=== PATIENT | female | born 1955 | race Caucasian/White ===

== ENCOUNTER 2020-11-19 08:36 | Emergency (ER) | payer MEDICARE ==
[2020-11-19] MEDS ORDERED: Ketorolac 30 MG/ML SDV IVPUSH ONE (09:12)
[2020-11-19] MEDS ORDERED: Prochlorperazine 10 MG/2 ML SDV IVPUSH ONE (09:12)
[2020-11-19] MEDS ORDERED: Sodium Chloride 0.9% 1,000 ML IV SCH (09:15)
--- NOTE | 2020-11-19 09:18 | EDM.PDOC ---
ED HPI GENERAL MEDICAL PROBLEM - General Chief Complaint: Headache Stated Complaint: VOMITTING, TERRIBLE HEADACHE Time Seen by Provider: 11/19/20 09:00 Source of Information: Reports: Patient History Limitations: Reports: No Limitations - History of Present Illness INITIAL COMMENTS - FREE TEXT/NARRATIVE: 65-year-old female with a frontal headache for the past 6 days, persistent nausea and intermittent emesis. No fevers or chills, no shortness of breath. She has lost 4 pounds in the last week, feels lightheaded and dizzy and dehydrated. She does have a history of migraines in the remote past but this 1 is different than the where she is ever had. Her headache is frontal, bilateral above her eyes, and radiates into the temporal areas. She has photophobia and nausea, no neurologic deficits, aphasia or asymmetry but is dizzy. Headache was not abrupt onset. Onset: Gradual Duration: Day(s): (6 days) Location: Reports: Head (Frontal and temporal bilaterally) Associated Symptoms: Reports: Headaches, Loss of Appetite, Nausea/Vomiting, Weakness, Other (Dizziness). 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 Denies: Fever, Chills, Decreased Appetite HEENT: Reports: Other (Photophobia but no vision change or diplopia) Respiratory: Reports: No Symptoms Cardiovascular: Reports: No Symptoms GI/Abdominal: Reports: Nausea, Vomiting : Reports: No Symptoms Skin: Reports: No Symptoms Neurological: Reports: Dizziness, Headache, Weakness Psychiatric: Reports: No Symptoms - Physical Exam Exam: See Below Exam Limited By: No Limitations General Appearance: Alert, No Apparent Distress (Looks uncomfortable and ill but not distressed) Eye Exam: Bilateral Eye: Normal Inspection, PERRL Head Exam: Scalp Tenderness (Tender to palpation over the frontal and temporal scalp bilaterally). No: Sinus Tenderness Neck: Supple, Non-Tender Respiratory/Chest: Lungs Clear Cardiovascular: Regular Rate, Rhythm, Tachycardia Neuro Exam (Abbreviated): Alert, Oriented, No Motor/Sensory Deficits Extremities: No Pedal Edema Psychiatric: Normal Affect, Normal Mood Skin Exam: Warm, Dry Course - Vital Signs Last Recorded V/S: Last Vital Signs Temp 97.4 F 11/19/20 08:53 Pulse 117 H 11/19/20 08:53 Resp 20 11/19/20 08:53 BP 163/84 H 11/19/20 08:53 Pulse Ox 99 11/19/20 08:53 - Orders/Labs/Meds Meds: Medications Discontinued Medications Generic Name Dose Route Start Last Admin Trade Name Freq PRN Reason Stop Dose Admin Sodium Chloride 1,000 mls @ 1,000 mls/hr 11/19/20 09:15 11/19/20 09:26 Normal Saline IV 1,000 mls/hr ASDIRECTED SHAYLA Administration Ketorolac Tromethamine 30 mg 11/19/20 09:12 11/19/20 09:24 Toradol IVPUSH 11/19/20 09:13 30 mg ONETIME ONE Administration Methylprednisolone Sodium Succinate 62.5 mg 11/19/20 10:28 11/19/20 10:37 Solu-Medrol IVPUSH 11/19/20 10:29 62.5 mg ONETIME ONE Administration Prochlorperazine Edisylate 5 mg 11/19/20 09:12 11/19/20 09:22 Compazine IVPUSH 11/19/20 09:13 5 mg ONETIME ONE Administration - Re-Assessments/Exams Free Text/Narrative Re-Assessment/Exam: 11/19/20 09:18 An IV was started, patient will be hydrated with 1 L of normal saline and she was given 30 mg of IV Toradol and 5 mg of IV Compazine. A CT of the head without contrast will be obtained. 11/19/20 10:00 30 minutes after the medications, the patient felt much better. She has received half a liter of fluid so far, and the head CT is negative. 11/19/20 10:36 Prior to discharge, patient was given 62.5 mg of IV Solu-Medrol. She will be discharged with 15 doses of tramadol and 5 doses of sublingual Zofran to use for symptom control over the next several days. She can return if worsening. Departure - Departure Time of Disposition: 10:54 Disposition: Home, Self-Care 01 Clinical Impression: Tension-type headache, Migraine - Discharge Information Instructions: General Headache Without Cause, [id number] Referrals: Sharri Levy MD [Primary Care Provider] - Forms: ED Department Discharge Care Plan Goals: Rest, fluids, and use tramadol for as needed pain control along with Zofran for nausea. You should improve rapidly over the next several days, if not consider rechecking if not improving satisfactorily. Return sooner if worsening such as increased pain, fever, or uncontrolled symptoms despite treatment. Sepsis Event Note (ED) - Evaluation Sepsis Screening Result: No Definite Risk - Focused Exam Vital Signs: Vital Signs Temp Pulse Resp BP Pulse Ox 11/19/20 08:53 97.4 F 117 H 20 163/84 H 99
--- NOTE | 2020-11-19 09:52 | CT ---
Head wo Cont CLINICAL HISTORY: Headache COMPARISON: None TECHNIQUE: Transverse scans were obtained from the base of the skull through the vertex without IV contrast on a multislice, multidetector CT scanner. Auto dosage reduction and iterative reconstruction techniques employed. FINDINGS: No focal abnormal parenchymal densities are identified. There is no mass effect, hemorrhage, or extraaxial collection. The basal cisterns and sulci over the convexities are normal. The ventricles are normal for age. There is a 6 x 8 mm calcified or ossified focus off the left-parietal calvarium anteriorly. This is likely a small quiescent meningioma or possibly a small enostosis. IMPRESSION: No acute intracranial process Small burned-out meningioma versus enostosis of the left the high parietal calvarium
[2020-11-19] MEDS ORDERED: methylPREDNISolone Sodium Succinate 125 MG/2 ML SDV IVPUSH ONE (10:28)
== END 2020-11-19 10:54 | disposition home or self-care (01) ==
LOC: JP.ED 08:36
DX: G44.209 Tension-type headache, unspecified, not intractable (principal); G43.909 Migraine, unspecified, not intractable, without status migrainosus; Z88.8 Allergy status to other drugs, medicaments and biological substances; Z88.0 Allergy status to penicillin
CPT/HCPCS: 70450; 96374; 96375; 99284; J0780; J1885; J2930; J7030

== ENCOUNTER 2021-06-28 11:31 | Emergency (ER) | payer MEDICARE ==
[2021-06-28] MEDS ORDERED: Adenosine 6 MG/2 ML SDV ONE ×2 (11:44→11:45)
[2021-06-28] MEDS ORDERED: Diltiazem 25 MG/5 ML SDV ONE (11:55)
[2021-06-28] MEDS ORDERED: Diltiazem 25 MG/5 ML SDV IVPUSH ONE (11:57)
[2021-06-28] MEDS ORDERED: Adenosine 6 MG/2 ML SDV IVPUSH ONE ×2 (11:59)
--- NOTE | 2021-06-28 12:01 | EDM.PDOC ---
ED HPI GENERAL MEDICAL PROBLEM - General Chief Complaint: Cardiovascular Problem Stated Complaint: MEDICAL VIA [facility] Time Seen by Provider: 06/28/21 12:00 Source of Information: Reports: Patient, RN Notes Reviewed History Limitations: Reports: No Limitations - History of Present Illness INITIAL COMMENTS - FREE TEXT/NARRATIVE: 65-year-old female presents emergency department with a complaint of palpitations, she states she has had palpitations in the past this really started this morning her other complaint is explosive diarrhea that also started this morning she is not vaccinated. - Related Data Allergies Allergy/AdvReac Type Severity Reaction Status Date / Time NSAIDS (Non-Steroidal Allergy Shortness Verified 06/28/21 12:03 Anti-Inflamma of Breath Penicillins Allergy Rash Verified 06/28/21 12:03 prednisone Allergy Shortness Verified 06/28/21 12:03 of Breath Home Meds: Home Meds NK [No Known Home Meds] 11/19/20 [History] Past Medical History BUT[employer] History: Reports: Musculoskeletal History: Reports: Back Pain, Chronic - Past Surgical History HEENT Surgical History: Reports: Adenoidectomy, Tonsillectomy Female Surgical History: Reports: Lithotripsy/ESWL Other Musculoskeletal Surgeries/Procedures:: back surgery Social & Family History - Caffeine Use Caffeine Use: Reports: Soda ED ROS GENERAL - Review of Systems Review Of Systems: See Below Constitutional: Reports: Weakness, Fatigue HEENT: Reports: No Symptoms Respiratory: Reports: No Symptoms Cardiovascular: Reports: Palpitations GI/Abdominal: Reports: Diarrhea ED EXAM, GENERAL - Physical Exam Exam: See Below Free Text/Narrative:: Rectal exam in the presence of nursing staff does show bright red blood on the skin no further exam is done Exam Limited By: No Limitations General Appearance: Alert, Mild Distress Respiratory/Chest: No Respiratory Distress, Lungs Clear, Normal Breath Sounds, No Accessory Muscle Use, Chest Non-Tender Cardiovascular: Tachycardia GI/Abdominal: Soft, Non-Tender #1 Interpretation EKG Date: 06/28/21 (n) Time: 13:06 Rhythm: Other (Tachycardia) [place]: Normal P-Wave: Present QRS: Normal ST-T: Normal QT: Normal Comparison: NA - No Prior EKG Course - Vital Signs Last Recorded V/S: Last Vital Signs Temp 99.1 F 06/28/21 16:11 Pulse 97 06/28/21 16:11 Resp 16 06/28/21 16:11 BP 110/58 L 06/28/21 16:11 Pulse Ox 100 06/28/21 14:24 - Orders/Labs/Meds Orders: Active Orders 24 hr Category Date Time Status Peripheral IV Care [RC] . DIRECTED Care 06/28/21 13:29 Active TROPONIN I [CHEM] Stat Lab 06/28/21 16:30 Ordered Sodium Chloride 0.9% [Normal Saline] 1,000 ml Med 06/28/21 12:15 Active IV ASDIRECTED Sodium Chloride 0.9% [Normal Saline] 1,000 ml Med 06/28/21 13:30 Active IV ASDIRECTED Sodium Chloride 0.9% [Saline Flush] Med 06/28/21 13:28 Active 10 ml FLUSH ASDIRECTED PRN Peripheral IV Insertion Adult [OM.PC] Urgent Oth 06/28/21 13:28 Ordered Transfuse Red Blood Cells [COMM] Stat Oth 06/28/21 13:29 Ordered Medication Orders Sodium Chloride (Normal Saline) 1,000 mls @ 999 mls/hr IV ASDIRECTED SHAYLA Last Admin: 06/28/21 12:17 Dose: 999 mls/hr Documented by: MICHELLE Sodium Chloride (Normal Saline) 1,000 mls @ 500 mls/hr IV ASDIRECTED SHAYLA Last Admin: 06/28/21 13:36 Dose: 500 mls/hr Documented by: MICHELLE Sodium Chloride (Sodium Chloride 0.9% 10 Ml Syringe) 10 ml FLUSH ASDIRECTED PRN PRN Reason: Keep Vein Open Labs: Laboratory Tests 06/28/21 06/28/21 06/28/21 Range/Units 11:35 11:35 11:35 WBC 10.8 (4.5-11.0) K/uL RBC 2.30 L (3.30-5.50) M/uL Hgb 7.7 L (12.0-15.0) g/dL Hct 23.7 L (36.0-48.0) % MCV 103 H (80-98) fL MCH 34 H (27-31) pg MCHC 33 (32-36) % Plt Count 252 (150-400) K/uL Neut % (Auto) 82.5 H (36-66) % Lymph % (Auto) 11.7 L (24-44) % [place] % (Auto) 5.5 (2-6) % Eos % (Auto) 0.0 L (2-4) % Baso % (Auto) 0.3 (0-1) % PT 10.9 H (9.2-10.6) sec INR 1.1 APTT 19.7 L (21.4-31.8) sec Sodium 140 (140-148) mmol/L Potassium 4.0 (3.6-5.2) mmol/L Chloride 103 (100-108) mmol/L Carbon Dioxide 24 (21-32) mmol/L Anion Gap 13.3 (5.0-14.0) mmol/L BUN 38 H (7-18) mg/dL Creatinine 1.4 H (0.6-1.0) mg/dL Est Cr Clr Drug Dosing TNP Estimated GFR (MDRD) 38 L (>60) Glucose 172 H (74-106) mg/dL Lactic Acid (0.4-2.0) mmol/L Calcium 8.2 L (8.5-10.1) mg/dL Total Bilirubin 0.5 (0.2-1.0) mg/dL AST 57 H (15-37) U/L ALT 57 (12-78) U/L Alkaline Phosphatase 83 (46-116) U/L Troponin I 0.356 H* (0.000-0.056) ng/mL Total Protein 5.0 L (6.4-8.2) g/dL Albumin 2.7 L (3.4-5.0) g/dL Globulin 2.3 (2.3-3.5) g/dL Albumin/Globulin Ratio 1.2 (1.2-2.2) SARS-CoV-2 RNA (ALETHA) (NEGATIVE) Blood Type Gel Antibody Screen Crossmatch 06/28/21 06/28/21 06/28/21 Range/Units 11:35 11:35 11:35 WBC (4.5-11.0) K/uL RBC (3.30-5.50) M/uL Hgb (12.0-15.0) g/dL Hct (36.0-48.0) % MCV (80-98) fL MCH (27-31) pg MCHC (32-36) % Plt Count (150-400) K/uL Neut % (Auto) (36-66) % Lymph % (Auto) (24-44) % [place] % (Auto) (2-6) % Eos % (Auto) (2-4) % Baso % (Auto) (0-1) % PT (9.2-10.6) sec INR APTT (21.4-31.8) sec Sodium (140-148) mmol/L Potassium (3.6-5.2) mmol/L Chloride (100-108) mmol/L Carbon Dioxide (21-32) mmol/L Anion Gap (5.0-14.0) mmol/L BUN (7-18) mg/dL Creatinine (0.6-1.0) mg/dL Est Cr Clr Drug Dosing Estimated GFR (MDRD) (>60) Glucose (74-106) mg/dL Lactic Acid 6.7 H (0.4-2.0) mmol/L Calcium (8.5-10.1) mg/dL Total Bilirubin (0.2-1.0) mg/dL AST (15-37) U/L ALT (12-78) U/L Alkaline Phosphatase (46-116) U/L Troponin I (0.000-0.056) ng/mL Total Protein (6.4-8.2) g/dL Albumin (3.4-5.0) g/dL Globulin (2.3-3.5) g/dL Albumin/Globulin Ratio (1.2-2.2) SARS-CoV-2 RNA (ALETHA) Negative (NEGATIVE) Blood Type B POSITIVE Gel Antibody Screen Negative Crossmatch See Detail Meds: Medications Generic Name Dose Route Start Last Admin Trade Name Freq PRN Reason Stop Dose Admin Sodium Chloride 1,000 mls @ 999 mls/hr 06/28/21 12:15 06/28/21 12:17 Normal Saline IV 999 mls/hr ASDIRECTED SHAYLA Administration Sodium Chloride 1,000 mls @ 500 mls/hr 06/28/21 13:30 06/28/21 13:36 Normal Saline IV 500 mls/hr ASDIRECTED SHAYLA Administration Sodium Chloride 10 ml 06/28/21 13:28 Sodium Chloride 0.9% 10 Ml Syringe FLUSH ASDIRECTED PRN Keep Vein Open Discontinued Medications Generic Name Dose Route Start Last Admin Trade Name Freq PRN Reason Stop Dose Admin Adenosine Confirm 06/28/21 11:44 Adenosine 6 Mg/2 Ml Sdv Administered 06/28/21 11:45 Dose 6 mg .ROUTE .STK-MED ONE Adenosine Confirm 06/28/21 11:45 Adenosine 6 Mg/2 Ml Sdv Administered 06/28/21 11:46 Dose 12 mg .ROUTE .STK-MED ONE Adenosine 6 mg 06/28/21 11:59 06/28/21 12:12 Adenosine 6 Mg/2 Ml Sdv IVPUSH 06/28/21 12:00 6 mg NOW ONE Administration Adenosine 12 mg 06/28/21 11:59 06/28/21 12:13 Adenosine 6 Mg/2 Ml Sdv IVPUSH 06/28/21 12:00 12 mg NOW ONE Administration Diltiazem HCl Confirm 06/28/21 11:55 Diltiazem 25 Mg/5 Ml Sdv Administered 06/28/21 11:56 Dose 25 mg .ROUTE .STK-MED ONE Diltiazem HCl 10 mg 06/28/21 11:57 06/28/21 12:00 Diltiazem 25 Mg/5 Ml Sdv IVPUSH 06/28/21 11:58 10 mg ONETIME ONE Administration Metoprolol Tartrate 2.5 mg/ 52.5 mls @ 105 mls/hr 06/28/21 12:22 06/28/21 12:40 Sodium Chloride IV 06/28/21 12:51 105 mls/hr ONETIME ONE Administration Lorazepam 0.5 mg 06/28/21 15:49 Lorazepam 2 Mg/Ml Sdv IVPUSH 06/28/21 15:50 ONETIME ONE Pantoprazole Sodium 40 mg 06/28/21 13:28 06/28/21 14:11 Pantoprazole 40 Mg Vial IVPUSH 06/28/21 13:29 40 mg ONETIME ONE Administration - Re-Assessments/Exams Free Text/Narrative Re-Assessment/Exam: 06/28/21 12:23 Attempted a Valsalva maneuver as well as carotid massage with no effect, next proceeded to adenosine 6 and 12 mg also no effect tried Cardizem 10 mg dose due to her weight this did slow her down from the 150s she is tend to stay around the 110 range. Next tried a low-dose of metoprolol 2.5 mg unfortunately her blood pressure has remained on the hypotensive side systolic 95/55. Blood work has come back she does have an elevated troponin as well as severe anemia hemoglobin at 7.7 elevated creatinine at 1.4 06/28/21 14:04 Good success with the metoprolol provided her heart rate did come down under 100 she is received 1 L of fluids on the second liter fluids a unit of packed red blood cells has been ordered, I called and discussed case with [facility], placed on a waiting list [facility] [place] placed on waiting list and [facility] also on a waiting list for admission between 1330 and 1400 06/28/21 15:16 I did get acceptance from [facility] however we will still hold her here until a bed becomes available, continue to give 1 unit of packed red blood cells which has been ordered but not initiated, her vital signs are otherwise stable Departure - Departure Time of Disposition: 16:25 Disposition: DC/Tfer to [facility] 02 Reason for Transfer *Q: Other Condition: Fair Clinical Impression: GI bleed Qualifiers: GI bleed type/associated pathology: unspecified gastrointestinal hemorrhage type Qualified Code(s): K92.2 - Gastrointestinal hemorrhage, unspecified Referrals: PCP,Unknown [Primary Care Provider] - Forms: ED Department Discharge Critical Care Note - Critical Care Note Total Time (mins): 45 Sepsis Event Note (ED) - Focused Exam Vital Signs: Vital Signs Temp Temp Pulse Pulse Resp BP BP 06/28/21 16:11 99.1 F 97 16 110/58 L 06/28/21 14:24 97 15 98/57 L 06/28/21 14:09 101 H 15 109/60 06/28/21 13:39 95 14 97/53 L 06/28/21 13:35 97.1 F 130 H 17 84/49 L 06/28/21 13:09 102 H 18 115/68 06/28/21 12:40 105 H 106 H 17 101/52 L 101/52 L 06/28/21 12:09 101 H 14 95/59 L 06/28/21 11:54 130 H 17 84/49 L 06/28/21 11:49 123 H 16 106/62 06/28/21 11:31 97.1 F 131 H 13 100/68 Pulse Ox 06/28/21 16:11 06/28/21 14:24 100 06/28/21 14:09 100 06/28/21 13:39 100 06/28/21 13:35 100 06/28/21 13:09 100 06/28/21 12:40 100 06/28/21 12:09 100 06/28/21 11:54 100 06/28/21 11:49 97 06/28/21 11:31 100 - My Orders Last 24 Hours: My Active Orders 06/28/21 12:15 Sodium Chloride 0.9% [Normal Saline] 1,000 ml IV ASDIRECTED 06/28/21 13:28 Sodium Chloride 0.9% [Saline Flush] 10 ml FLUSH ASDIRECTED PRN Peripheral IV Insertion Adult [OM.PC] Urgent 06/28/21 13:29 Peripheral IV Care [RC] . DIRECTED Transfuse Red Blood Cells [COMM] Stat 06/28/21 13:30 Sodium Chloride 0.9% [Normal Saline] 1,000 ml IV ASDIRECTED 06/28/21 16:30 TROPONIN I [CHEM] Stat - Assessment/Plan Last 24 Hours: My Active Orders 06/28/21 12:15 Sodium Chloride 0.9% [Normal Saline] 1,000 ml IV ASDIRECTED 06/28/21 13:28 Sodium Chloride 0.9% [Saline Flush] 10 ml FLUSH ASDIRECTED PRN Peripheral IV Insertion Adult [OM.PC] Urgent 06/28/21 13:29 Peripheral IV Care [RC] . DIRECTED Transfuse Red Blood Cells [COMM] Stat 06/28/21 13:30 Sodium Chloride 0.9% [Normal Saline] 1,000 ml IV ASDIRECTED 06/28/21 16:30 TROPONIN I [CHEM] Stat Plan: Assessment Acuity = acute Site and laterality = GI bleed complicated with SVT and severe anemia Etiology = unknown Manifestations = weakness Location of injury = Home Lab values = hemoglobin low at 7.7 consistent with severe anemia INR normal 1.1 creatinine elevated 1.4 consistent with acute renal failure stage G3 B lactic acid markedly elevated 6.7 consistent with lactic acidosis probably related to c urrent events troponin elevated at 0.356 probably related to demand ischemia with severe anemia Covid was negative, EKG demonstrates sinus tachycardia no ST elevations or depressions Plan After stabilization we did gain acceptance to [facility] should be transferred via EMS ground 1 unit of blood is given in transport This note was dictated using dragon voice recognition software please call with any questions on syntax or grammar.
[2021-06-28] MEDS ORDERED: Sodium Chloride 0.9% 1,000 ML IV SCH ×2 (12:15→13:30)
[2021-06-28] MEDS ORDERED: Metoprolol Tartrate 2.5 MG in Sodium Chloride 0.9% 50 ML IV ONE (12:22)
[2021-06-28] MEDS ORDERED: Pantoprazole 40 MG Vial IVPUSH ONE (13:28)
[2021-06-28] MEDS ORDERED: Sodium Chloride 0.9% 10 ML Syringe FLUSH PRN (13:28)
[2021-06-28] MEDS ORDERED: LORazepam 2 MG/ML SDV IVPUSH ONE (15:49)
== END 2021-06-28 16:37 ==
LOC: JP.ED 11:31
DX: K92.2 Gastrointestinal hemorrhage, unspecified (principal); R00.0 Tachycardia, unspecified; Z88.6 Allergy status to analgesic agent; Z88.0 Allergy status to penicillin; Z88.8 Allergy status to other drugs, medicaments and biological substances; Z20.822 Contact with and (suspected) exposure to COVID-19
CPT/HCPCS: 36415; 36430; 80053; 83605; 84484; 85025; 85610; 85730; 86850; 86900; 86901; 86920; 86922; 96365; 96375; 99291; C9113; J0153; J3490; J7030; P9016; U0002

== ENCOUNTER 2021-08-09 06:50 | Day surgery (SDC) | payer MEDICARE ==
[2021-08-09] MEDS ORDERED: Propofol 200 MG/20 ML SDV ONE (07:29)
[2021-08-09] MEDS ORDERED: Midazolam 1 MG/ML 2 ML SDV ONE (07:30)
[2021-08-09] MEDS ORDERED: Sodium Chloride 0.9% 1,000 ML IV SCH (07:30)
[2021-08-09] MEDS ORDERED: fentaNYL 100 MCG/2 ML SDV ONE (07:30)
--- NOTE | 2021-08-09 10:22 | OR ---
DATE OF PROCEDURE: 08/09/2021 SURGEON: Fausto Jacob MD PROCEDURE: Colonoscopy. FINDINGS: Rectal polyp, approximately 5 mm, completely removed using cold biopsy forceps. COMPLICATIONS: None. SETTLEMENT CLERK: None. PREOPERATIVE DIAGNOSIS: Screening colonoscopy. POSTOPERATIVE DIAGNOSIS: Screening colonoscopy. RISKS: Risks, benefits, alternatives, and limitations including, but not limited to infection, bleeding, perforation, false positive, false negatives were explained to the patient who wished to proceed. PROCEDURE IN DETAIL: The patient was placed in left lateral decubitus position. Digital rectal exam was performed without abnormality. Scope was introduced and advanced atraumatically to the ileocecal valve. A photo was taken of the appendiceal orifice. Scope was brought back to the ascending, transverse, descending colon, and retroflexed. No evidence of old or new blood. No masses. No polyps. The aforementioned polyp was identified and completely removed. No abnormalities on retroflexion. Greater than 8 minutes was spent removing the scope. Prep was acceptable, approximately 90% of the luminal surface could be seen. The patient tolerated the procedure well. Fausto Jacob MD /[id number]
== END 2021-08-09 09:41 | disposition home or self-care (01) ==
LOC: JP.SDS 06:50
PROVIDERS: ATTEND Surgery
DX: Z12.11 Encounter for screening for malignant neoplasm of colon (principal); F17.200 Nicotine dependence, unspecified, uncomplicated
CPT/HCPCS: 45380; J2250; J2704; J3010; J7030

== ENCOUNTER 2021-10-16 16:56 | Emergency (ER) | payer MEDICARE ==
[2021-10-16 18:45] LABS: CORONAVIRUS COVID-19 NAA NEGATIVE (NEGATIVE)
== END 2021-10-16 19:51 | disposition home or self-care (01) ==
LOC: JP.ED 16:56
DX: B34.9 Viral infection, unspecified (principal); I48.91 Unspecified atrial fibrillation; Z88.8 Allergy status to other drugs, medicaments and biological substances; Z88.0 Allergy status to penicillin; Z79.899 Other long term (current) drug therapy; Z20.822 Contact with and (suspected) exposure to COVID-19
CPT/HCPCS: 0241U; 36415; 71045; 80053; 83605; 85025; 86140; 99282; 99284

== ENCOUNTER 2023-09-02 18:53 | Observation (INO) | payer MEDICARE ==
[~2023-09-02 18:53] MED LIST: Naloxone 0.4 MG/ML SDV IVPUSH ONE
[2023-09-02] MEDS ORDERED: Bacitracin Oint 1 GM U/D Packet TOP ONE (19:15)
[2023-09-02] MEDS ORDERED: Sodium Chloride 0.9% 1,000 ML IV ONE (19:15)
[2023-09-02 19:17] LABS: BASOPHILS PERCENT AUTO 0.4 % (0.1-1.3); EOSINOPHILS ABSOLUTE AUTO 0.31 K/uL (0.00-0.40); EOSINOPHILS PERCENT AUTO 5.9 % (0.0-5.4); HEMATOCRIT 31.7 % (34.3-46.0); HEMOGLOBIN 10.2 g/dL (11.2-15.5); IMMATURE GRAN ABSOLUTE AUTO 0.04 K/uL (0.00-0.23); IMMATURE GRAN PERCENT AUTO 0.8 % (0.0-0.7); LYMPHOCYTES ABSOLUTE AUTO 0.99 K/uL (0.8-3.3); LYMPHOCYTES PERCENT AUTO 18.9 % (11.4-47.7); MEAN CORPUSCULAR HGB CONC 32.2 g/dL (31.6-35.5); MEAN CORPUSCULAR VOLUME 102.6 fL (81.4-99.0); MONOCYTES ABSOLUTE AUTO 0.38 K/uL (0.20-0.90); MONOCYTES PERCENT AUTO 7.2 % (3.3-12.6); NEUTROPHILS ABSOLUTE AUTO 3.51 K/uL (1.0-7.6); NEUTROPHILS PERCENT AUTO 66.8 % (40.0-78.1); PLATELET COUNT,PLT 181 K/uL (130-375); RED BLOOD CELL COUNT 3.09 M/uL (3.77-5.24); WHITE BLOOD CELL COUNT,WBC 5.3 K/uL (3.2-11.0)
[2023-09-02 19:18] LABS: BASOPHILS ABSOLUTE AUTO 0.02 K/uL (0.00-0.10)
[2023-09-02 19:38] LABS: A/G RATIO 0.9 (1.2-2.2); ALANINE AMINOTRANSFERASE,ALT 64 U/L (12-78); ALBUMIN 2.9 g/dL (3.4-5.0); ALKALINE PHOSPHATASE 148 U/L (46-116); ASPARTATE AMNIOTRANSFERASE,AST 61 U/L (15-37); BILIRUBIN TOTAL 0.5 mg/dL (0.2-1.0); BLOOD UREA NITROGEN,BUN 17 mg/dL (7-18); CALCIUM 8.2 mg/dL (8.5-10.1); CARBON DIOXIDE,CO2 23 mmol/L (21-32); CHLORIDE,CL 102 mmol/L (100-108); CREATININE 2.1 mg/dL (0.6-1.0); EST CRCL DRUG DOSING (CG) 20.62 mL/min; ESTIMATED GFR 25 mL/min (>60); GLUCOSE RANDOM 110 mg/dL (74-106); POTASSIUM,K 3.3 mmol/L (3.6-5.2); PROTEIN TOTAL,TP 6.1 g/dL (6.4-8.2); SODIUM,NA 138 mmol/L (140-148)
[2023-09-02 19:40] LABS: ANION GAP 16.3 mmol/L (5.0-14.0)
[2023-09-02] MEDS ORDERED: Cephalexin 250 MG Cap PO ONE (20:44)
[2023-09-02] MEDS ORDERED: Potassium Chloride 20 MEQ Tab.ER PO ONE (20:47)
[2023-09-02] MEDS ORDERED: Naloxone 0.4 MG/ML SDV IVPUSH PRN ×2 (21:03→22:40)
[2023-09-02 21:15] LABS: APPEARANCE,URINE CLEAR (CLEAR); BILIRUBIN,URINE NEGATIVE (NEGATIVE); COLOR,URINE YELLOW (YELLOW); GLUCOSE,URINE NEGATIVE (NEGATIVE); KETONES,URINE TRACE mg/dL (NEGATIVE); LEUKOCYTE ESTERASE,URINE NEGATIVE (NEGATIVE); NITRITE,URINE NEGATIVE (NEGATIVE); OCCULT BLOOD,URINE NEGATIVE (NEGATIVE); PH,URINE 5.5 (5.0-8.0); PROTEIN,URINE 30 mg/dL (NEGATIVE); UROBILINOGEN,URINE 0.2 EU/dL (0.2-1.0)
[2023-09-02 21:22] LABS: AMORPHOUS SEDIMENT,URINE NOT SEEN; AMPHETAMINES SCREEN, URINE NEGATIVE (NEGATIVE); BACTERIA,URINE MODERATE; BARBITURATE SCREEN,URINE NEGATIVE (NEGATIVE); BENZODIAZEPINES SCREEN,URINE NEGATIVE (NEGATIVE); EPITHELIAL CELLS,URINE FEW; METHADONE SCREEN, URINE NEGATIVE (NEGATIVE); METHAMPHETAMINES SCREEN, URINE NEGATIVE (NEGATIVE); MUCUS,URINE FEW; OXYCODONE SCREEN,URINE NEGATIVE (NEGATIVE); PROPOXYPHENE SCREEN,URINE NEGATIVE (NEGATIVE); RBC,URINE 0-5 (0-5); THC SCREEN,URINE 50 NG/ML NEGATIVE (NEGATIVE); WBC,URINE 0-5 (0-5)
[2023-09-02] MEDS ORDERED: ceFAZolin 1 GM in Sodium Chloride 0.9% 50 ML IV ONE (23:00)
[2023-09-02] MEDS ORDERED: Dextrose 5%-0.9% NaCl 1,000 ML IV SCH (23:00)
[2023-09-02 23:14] LABS: O2 SATURATION ARTERIAL 98.3 % (95.0-98.0); PCO2 ARTERIAL 36.2 mmHg (35.0-42.0)
[2023-09-02 23:15] LABS: BASE EXCESS ARTERIAL -5.8 mm/L; BICARBONATE,ARTERIAL 18.9 mmol/L (22.0-26.0); METHEMOGLOBIN 0.7 %; OXYHEMOGLOBIN 94.7 %; TOTAL HEMOGLOBIN 10.4 g/dL (12.0-16.0)
[2023-09-02 23:57] LABS: TSH ULTRASENSITIVE 3.274 uIU/mL (0.358-3.740)
[2023-09-02 23:59] LABS: FOLIC ACID 20.8 ng/ml (8.6-58.9)
[2023-09-03 00:29] LABS: CORONAVIRUS COVID-19 NAA NEGATIVE (NEGATIVE); INFLUENZA A NAA NEGATIVE (NEGATIVE); INFLUENZA B NAA NEGATIVE (NEGATIVE); RESPIRATORY SYNCYTIAL VIR NAA NEGATIVE (NEGATIVE)
[2023-09-03] MEDS ORDERED: Naloxone 0.4 MG/ML SDV ONE (00:38)
[2023-09-03] MEDS ORDERED: Naloxone 0.4 MG/ML SDV IVPUSH PRN (00:42)
[2023-09-03] MEDS ORDERED: cefTRIAXone 1 GM in Sodium Chloride 0.9% 50 ML IV SCH ×2 (02:00→21:00)
[2023-09-03] MEDS ORDERED: Sodium Chloride 0.9% 1,000 ML IV SCH ×2 (02:21→05:45)
[2023-09-03] MEDS ORDERED: Acetaminophen 325 MG Tab PO PRN (02:21)
[2023-09-03] MEDS ORDERED: Pantoprazole 40 MG Vial IV ONE (02:21)
[2023-09-03] MEDS ORDERED: Promethazine 25 MG Tab PO PRN (02:21)
[2023-09-03] MEDS ORDERED: Albuterol 0.083% 2.5 MG/3 ML Neb Soln NEB PRN (02:21)
[2023-09-03] MEDS ORDERED: Docusate Sodium 100 MG Cap PO PRN (02:21)
[2023-09-03] MEDS ORDERED: Bisacodyl 5 MG Tab PO PRN (02:21)
[2023-09-03 04:47] LABS: BASOPHILS PERCENT AUTO 0.5 % (0.1-1.3); EOSINOPHILS ABSOLUTE AUTO 0.26 K/uL (0.00-0.40); EOSINOPHILS PERCENT AUTO 6.1 % (0.0-5.4); HEMATOCRIT 28.5 % (34.3-46.0); HEMOGLOBIN 9.2 g/dL (11.2-15.5); IMMATURE GRAN PERCENT AUTO 0.5 % (0.0-0.7); LYMPHOCYTES ABSOLUTE AUTO 1.19 K/uL (0.8-3.3); LYMPHOCYTES PERCENT AUTO 27.8 % (11.4-47.7); MEAN CORPUSCULAR HEMOGLOBIN 33.3 pg (31.6-35.5); MEAN CORPUSCULAR HGB CONC 32.3 g/dL (31.6-35.5); MEAN CORPUSCULAR VOLUME 103.3 fL (81.4-99.0); MONOCYTES ABSOLUTE AUTO 0.43 K/uL (0.20-0.90); NEUTROPHILS ABSOLUTE AUTO 2.36 K/uL (1.0-7.6); NEUTROPHILS PERCENT AUTO 55.1 % (40.0-78.1); PLATELET COUNT,PLT 164 K/uL (130-375); RED BLOOD CELL COUNT 2.76 M/uL (3.77-5.24); WHITE BLOOD CELL COUNT,WBC 4.3 K/uL (3.2-11.0)
[2023-09-03 05:09] LABS: CALCIUM 7.5 mg/dL (8.5-10.1); CREATININE 1.3 mg/dL (0.6-1.0); EST CRCL DRUG DOSING (CG) 34.77 mL/min; POTASSIUM,K 3.7 mmol/L (3.6-5.2)
[2023-09-03 05:21] LABS: BASOPHILS ABSOLUTE AUTO 0.02 K/uL (0.00-0.10); IMMATURE GRAN ABSOLUTE AUTO 0.02 K/uL (0.00-0.23)
[2023-09-03 05:22] LABS: ANION GAP 11.7 mmol/L (5.0-14.0)
[2023-09-03] MEDS: Levothyroxine 50 MCG Tab PO SCH (08:50)
[2023-09-03] MEDS: Atenolol 25 MG Tab PO SCH (09:18)
[2023-09-03] MEDS ORDERED: Potassium Chloride 20 MEQ Tab.ER PO ONE (09:45)
[2023-09-03] MEDS: Acetaminophen/HYDROcodone 325-5 MG Tab PO PRN ×2 (19:22→23:36)
[2023-09-03] MEDS ORDERED: Melatonin 3 MG Tab PO PRN (21:34)
[2023-09-04 06:09] LABS: HEMATOCRIT 29.1 % (34.3-46.0); HEMOGLOBIN 9.4 g/dL (11.2-15.5); MEAN CORPUSCULAR HEMOGLOBIN 33.9 pg (31.6-35.5); MEAN CORPUSCULAR HGB CONC 32.3 g/dL (31.6-35.5); MEAN CORPUSCULAR VOLUME 105.1 fL (81.4-99.0); RED BLOOD CELL COUNT 2.77 M/uL (3.77-5.24); WHITE BLOOD CELL COUNT,WBC 3.3 K/uL (3.2-11.0)
[2023-09-04] MEDS: Acetaminophen/HYDROcodone 325-5 MG Tab PO PRN ×2 (06:15→13:34)
[2023-09-04 06:29] LABS: EST CRCL DRUG DOSING (CG) 45.2 mL/min
[2023-09-04] MEDS: Levothyroxine 50 MCG Tab PO SCH (07:48)
[2023-09-04] MEDS: Atenolol 25 MG Tab PO SCH (09:04)
== END 2023-09-04 15:35 | disposition home or self-care (01) ==
LOC: JP.ED 18:53 → JP.MS 09-03 01:21
PROVIDERS: ADMIT Internal Medicine; ATTEND Internal Medicine
DX: S02.119B Unspecified fracture of occiput, initial encounter for open fracture (principal); T50.905A Adverse effect of unspecified drugs, medicaments and biological substances, initial encounter; I10 Essential (primary) hypertension; E87.6 Hypokalemia; I48.91 Unspecified atrial fibrillation; E78.00 Pure hypercholesterolemia, unspecified; Z88.6 Allergy status to analgesic agent; Z88.8 Allergy status to other drugs, medicaments and biological substances; Z88.0 Allergy status to penicillin; Z90.89 Acquired absence of other organs; Z20.822 Contact with and (suspected) exposure to COVID-19; Z79.899 Other long term (current) drug therapy; W18.30XA Fall on same level, unspecified, initial encounter
CPT/HCPCS: 0241U; 12001; 36415; 36600; 70450; 80048; 80053; 80305; 80307; 81001; 82140; 82607; 82746; 82803; 82947; 83690; 83735; 84443; 85025; 85027; 93005; 93010; 96361; 96365; 96375; 96376; 97161; 99284; 99285; A9270; C9113; G0378; J0696; J2310; J3490; J7030; 96374